=== PATIENT | female | born 1950 | race Caucasian/White ===

== ENCOUNTER 2023-12-07 22:26 | Inpatient (IN) | payer MEDICARE, MEDICAID ==
[~2023-12-07] VITALS: Ht 160 cm; Wt 60.3 kg
[2023-12-07 22:47] VITALS: O2SAT 94
[2023-12-07 23:51] LABS: BASOPHILS % 0.2 % (0.0-2.0); DIFFERENTIAL COMMENT 0; EOSINOPHILS % 0.5 % (0.0-5.0); HEMATOCRIT. 25.5 % (36.0-48.0); HEMOGLOBIN. 8.7 g/dL (12.0-16.0); LYMPHOCYTES % 17.9 % (20.0-50.0); MEAN CORPUSCULAR HGB CONC 34.2 g/dL (31.0-37.0); MEAN CORPUSCULAR VOLUME 108.3 fL (81.0-99.0); MEAN PLATELET VOLUME 6.9 fl (7.4-10.4); MONOCYTES % 6.4 % (2.0-8.0); PLATELET 152 x1000/uL (130-400); RED BLOOD CELL COUNT 2.35 mill/uL (4.2-5.4); RED CELL DISTRIBUTION WIDTH 17.3 % (11.6-14.6); WHITE BLOOD COUNT 4.1 x1000/uL (4.5-11.0)
[2023-12-08] LABS: CARBON DIOXIDE 24 mEq/L (21-32); CHLORIDE 103 mEq/L (98-107); POTASSIUM 3.8 mEq/L (3.5-5.1); SODIUM 137 mEq/L (136-145)
[2023-12-08 00:01] LABS: CALCIUM 7.1 mg/dL (8.7-10.4)
[2023-12-08 00:03] LABS: INR 2.2; PARTIAL THROMBOPLASTIN TIME 36.6 sec (23.4-31.0); PROTHROMBIN TIME 23.1 sec (9.6-11.0)
[2023-12-08 00:06] LABS: CREATININE 0.8 mg/dL (0.6-1.0); GLUCOSE 118 mg/dL (70-105); UREA NITROGEN BLOOD 28 mg/dL (9-23)
[2023-12-08 00:08] LABS: TROPONIN I HIGH SENSITIVITY 29 ng/L (3.0-34)
[2023-12-08] MEDS: SODIUM CHLORIDE 0.9% 1000ML BAG (SEPSIS BOLUS) IV ONE (00:27)
[2023-12-08] MEDS: ACETAMINOPHEN 325MG TABLET PO STA (01:27)
[2023-12-08] MEDS: ACETAMINOPHEN 325MG TABLET PO ONE (01:27)
[2023-12-08 02:20] LABS: TROPONIN I HIGH SENSITIVITY 25 ng/L (3.0-34)
[2023-12-08] MEDS: DILTIAZEM HCL 5MG/ML 5ML VIAL IV ONE (03:37)
[2023-12-08 03:47] LABS: CLARITY URINE CLOUDY (CLEAR); COLOR URINE YELLOW (YELLOW); GLUCOSE URINE NEGATIVE (NEGATIVE); KETONES URINE TRACE (NEGATIVE); LEUKOCYTE ESTERASE URINE 3+ (NEGATIVE); NITRITE URINE NEGATIVE (NEGATIVE); OCCULT BLOOD URINE 2+ (NEGATIVE); PROTEIN URINE 2+ (NEGATIVE); SPECIFIC GRAVITY URINE 1.018 (1.005-1.030)
[2023-12-08] MEDS: CEFTRIAXONE 1GM/50ML 50 ML IV ONE (05:48)
[2023-12-08 08:00] VITALS: BP 138/86; PULSE 110; RESP 18; TEMP 97.7
[2023-12-08 08:39] VITALS: BP 138/86; PULSE 110; RESP 18; TEMP 97.7
[2023-12-08] MEDS ORDERED: GUAIFENESIN 200MG/10ML SUGAR FREE UDC PO PRN (08:45)
[2023-12-08] MEDS ORDERED: ACETAMINOPHEN 325MG TABLET PO PRN ×2 (08:45)
[2023-12-08] MEDS ORDERED: MAGNESIUM/ALUMINUM HYDROXIDE/SIMETHICONE 30ML UDC PO PRN (08:45)
[2023-12-08] MEDS ORDERED: CLONIDINE 0.1MG TABLET PO PRN (08:45)
[2023-12-08] MEDS ORDERED: DOCUSATE SODIUM 100MG CAPSULE PO PRN (08:45)
[2023-12-08] MEDS ORDERED: IPRATROPIUM/ALBUTEROL 0.5-3(2.5)MG/3ML NEB NEB PRN (08:45)
[2023-12-08] MEDS ORDERED: ZOLPIDEM TARTRATE 5MG TABLET PO PRN (08:45)
[2023-12-08] MEDS ORDERED: BUPR2TAB SL (08:48)
[2023-12-08] MEDS ORDERED: WARF4TAB71 PO (08:48)
[2023-12-08] MEDS ORDERED: VALA500T55 PO (08:48)
[2023-12-08] MEDS ORDERED: FAMO20TA8 PO (08:48)
[2023-12-08] MEDS ORDERED: TRAZ-251 PO (08:48)
[2023-12-08] MEDS ORDERED: LEVO2TAB4 PO (08:48)
[2023-12-08] MEDS ORDERED: ATOR40TA70 PO (08:48)
[2023-12-08] MEDS ORDERED: LOSA100T33 PO (08:48)
[2023-12-08] MEDS ORDERED: BACL-141 PO (08:48)
[2023-12-08] MEDS ORDERED: CARB200T6 PO (08:48)
[2023-12-08] MEDS ORDERED: CARV6.2548 PO (08:48)
[2023-12-08] MEDS ORDERED: GABA800T97 PO (08:48)
[2023-12-08] MEDS ORDERED: FURO20TA4 PO (08:48)
[2023-12-08] MEDS ORDERED: HYDROCODONE/ACETAMINOPHEN 5/325MG TABLET PO PRN (09:00)
[2023-12-08] MEDS ORDERED: MORPHINE SULFATE 2 MG/ML CPJ (NOT FOR IM USE) IV PRN (09:00)
[2023-12-08] MEDS ORDERED: NALOXONE HCL 0.4MG/ML VIAL IV PRN (09:15)
[2023-12-08 09:17] LABS: SQUAMOUS EPITHELIAL CELL URINE 1+ /lpf (RARE/1+)
[2023-12-08 09:28] LABS: BACTERIA URINE 4+
[2023-12-08 09:29] LABS: RBC URINE 25-50 /hpf (0-2); WBC URINE 15-25 /hpf (0-2)
[2023-12-08] MEDS: ZINC SULFATE 220 MG ( 50 ) CAPSULE PO SCH (10:26)
[2023-12-08] MEDS: FAMOTIDINE 20MG TABLET PO SCH (10:27)
[2023-12-08] MEDS: ONDANSETRON HCL 4MG/2ML INJ IV PRN (10:27)
[2023-12-08] MEDS: ASCORBIC ACID 500 MG TABLET PO SCH (10:27)
[2023-12-08] MEDS ORDERED: VANCOMYCIN 1GM/200ML PMX (BAXTER) IV SCH (11:00)
[2023-12-08] MEDS ORDERED: AZTREONAM 2 GM in DEXT 5% WATER 100 ML IV SCH (11:00)
[2023-12-08 11:12] LABS: IRON 66 ug/dL (50-170)
[2023-12-08 11:13] LABS: LDL CHOLESTEROL 61 mg/dL (5-100); TRIGLYCERIDE 89 mg/dL (0-150)
[2023-12-08 11:14] LABS: AMMONIA 33 uMol/L (<32)
[2023-12-08 11:15] LABS: CHOLESTEROL 106 mg/dL (<200); HDL CHOLESTEROL 30 mg/dL (>65); TOTAL IRON BINDING CAPACITY 354 ug/dl (250-425)
[2023-12-08 11:17] LABS: T4 FREE 0.87 ng/dL (0.89-1.76); THYROID STIMULATING HORMONE 2.28 uIU/mL (0.55-4.78)
[2023-12-08 12:00] VITALS: BP 138/86; PULSE 110; RESP 18; TEMP 97.7
[2023-12-08] MEDS ORDERED: IOHEXOL-300 100 ML BOTTLE ONE (12:14)
[2023-12-08] MEDS ORDERED: MEROPENEM 1G/100ML 100 ML IV SCH (13:00)
[2023-12-08] MEDS ORDERED: WARFARIN SODIUM 4MG TABLET PO SCH ×2 (18:00)
[2023-12-08] MEDS ORDERED: FAMOTIDINE(NEO) 1MG/ML SUSP PO SCH (21:00)
[2023-12-08] MEDS ORDERED: TRAZODONE HCL 50MG TABLET PO SCH (21:00)
[2023-12-08] MEDS ORDERED: ATORVASTATIN CALCIUM 40MG TABLET PO SCH (21:00)
[2023-12-08] MEDS ORDERED: CARBAMAZEPINE 200MG TABLET PO SCH (21:00)
[2023-12-08] MEDS ORDERED: CARVEDILOL 6.25 MG TABLET PO SCH (21:00)
[2023-12-08] MEDS ORDERED: VANCOMYCIN 500MG/100ML IV SCH (23:00)
[2023-12-09] MEDS ORDERED: LOSARTAN 100 MG TABLET PO SCH (09:00)
[2023-12-09] MEDS ORDERED: FUROSEMIDE 20MG TABLET PO SCH (09:00)
[2023-12-09 13:37] LABS: *AMPHETAMINES SCREEN URINE NEGATIVE (NEGATIVE); *BARBITURATES SCREEN URINE NEGATIVE (NEGATIVE)
[2023-12-09 13:38] LABS: *COCAINE SCREEN URINE NEGATIVE (NEGATIVE); METHADONE URINE SCREEN NEGATIVE (NEGATIVE); OPIATES URINE SCREEN NEGATIVE (NEGATIVE); PHENCYCLIDINE URINE SCREEN NEGATIVE (NEGATIVE)
[2023-12-09 13:39] LABS: ECSTASY MDMA SCREEN URINE NEGATIVE (NEGATIVE)
== END 2023-12-08 14:50 | disposition left against medical advice (07) | DRG 871 ==
LOC: ER 22:26 → 5WST 12-08 04:33 → EDBEDREQ 12-08 04:50 → 8WST 12-08 07:55
PROVIDERS: ADMIT Internal Medicine; ATTEND Internal Medicine
DX: A41.9 Sepsis, unspecified organism (principal); G92.8 Other toxic encephalopathy; C34.90 Malignant neoplasm of unspecified part of unspecified bronchus or lung; D53.9 Nutritional anemia, unspecified; D64.81 Anemia due to antineoplastic chemotherapy; T45.1X5A Adverse effect of antineoplastic and immunosuppressive drugs, initial encounter; E03.8 Other specified hypothyroidism; E78.5 Hyperlipidemia, unspecified; E86.0 Dehydration; G50.0 Trigeminal neuralgia; I10 Essential (primary) hypertension; X58.XXXA Exposure to other specified factors, initial encounter; I48.91 Unspecified atrial fibrillation; R73.03 Prediabetes; Z53.29 Procedure and treatment not carried out because of patient's decision for other reasons; Z79.01 Long term (current) use of anticoagulants; Z79.899 Other long term (current) drug therapy; Z85.118 Personal history of other malignant neoplasm of bronchus and lung; Z88.0 Allergy status to penicillin
CPT/HCPCS: 36415; 71045; 71250; 71270; 80048; 80061; 80305; 81003; 82140; 82607; 82746; 83036; 83540; 83550; 83605; 83880; 84145; 84439; 84443; 84484; 85025; 85379; 93005; 93970; 99291; J0696; J2185; J2405; J3370; J3490; J7030; J7060; Q9967